=== PATIENT | male | born 1990 | race American Indian/Alaskan Native ===

== ENCOUNTER 2017-06-08 19:00 | Emergency (ER) | payer OTHER ==
[2017-06-08 19:10] VITALS: BP 141/79
[2017-06-08 19:50] LABS: Basophils % (Auto) 0.4 % (0.0-1.8); Eosinophils % (Auto) 0.4 % (0.0-4.3); Hematocrit 44.5 % (35.5-45.6); Hemoglobin 14.6 gm/dl (11.8-15.2); Mean Corpuscular HGB Conc 33 % (32-34); Mean Corpuscular Hemoglobin 30 pg (28-32); Mean Corpuscular Volume 91 fl (84-94); Platelet Count 287 K/mm3 (140-440); Red Cell Distribution Width 12.4 % (13.2-15.2); White Blood Count 9.4 K/mm3 (4.5-11.0)
[2017-06-08 20:09] LABS: Anion Gap 30 mmol/L; BUN/Creatinine Ratio 22; Blood Urea Nitrogen 26 mg/dL (9-20); Calcium 9.4 mg/dL (8.4-10.2); Carbon Dioxide 17 mmol/L (22-30); Chloride 77.5 mmol/L (98-107); Potassium 4.8 mmol/L (3.6-5.0); Sodium 120 mmol/L (137-145)
[2017-06-08 20:12] LABS: Bacteria,Urine 1+ /HPF (Negative); Bilirubin,Urine NEG (Negative); Blood,Urine NEG (Negative); Ketones,Urine 20 mg/dL (Negative); Leukocyte Esterase,Urine NEG (Negative); Nitrite,Urine NEG (Negative); Protein,Urine <15 mg/dL mg/dL (Negative); Urobilinogen,Urine < 2.0 mg/dL (<2.0)
[2017-06-08 20:21] LABS: Glucose 919 mg/dL (75-100)
== END 2017-06-08 21:23 | disposition left against medical advice (07) ==
LOC: ED 19:00
DX: E11.9 Type 2 diabetes mellitus without complications (principal); Z53.21 Procedure and treatment not carried out due to patient leaving prior to being seen by health care provider
CPT/HCPCS: 36415; 80048; 81001; 82805; 82962; 85025